=== PATIENT | female | born 1950 | race African-American/Black ===

== ENCOUNTER 2016-07-09 10:01 | Outpatient (CLI) | payer MEDICARE, OTHER ==
[2016-07-09 13:21] LABS: Cardiac Risk 3.7 (Less than 4.5)
== END 2016-07-09 10:02 | disposition home or self-care (01) ==
LOC: NAVSJIPCSP 10:01
PROVIDERS: ATTEND Internal Medicine
DX: E78.5 Hyperlipidemia, unspecified (principal); E10.29 Type 1 diabetes mellitus with other diabetic kidney complication; Z79.899 Other long term (current) drug therapy
CPT/HCPCS: 36415; 80061; 83036

== ENCOUNTER 2016-10-10 09:59 | Outpatient (CLI) | payer MEDICARE, OTHER ==
[2016-10-10 12:55] LABS: Bilirubin Negative (Negative); Blood, Urine Large (Negative); Clarity Clear (Clear); Glucose, Urine (Dipstick) Negative (Negative); Leukocyte Negative (Negative); Nitrite Negative (Negative); Protein, Urine (Dipstick) Negative (Neg-Trace); Specific Gravity, Urine 1.015 (1.005-1.030); Urobilinogen 0.2 mg/dL (0.2-1.0)
[2016-10-10 13:00] LABS: #Basophils 0.1 thou/uL (0.0-0.2); #Eosinphils 0.3 thou/uL (0.0-0.7); #Lymphocytes 2.8 thou/uL (1.20-3.40); #Monocytes 1.2 thou/uL (0.11-0.59); #Neutrophils 4.5 thou/uL (1.40-6.50); %Basophils 1.2 % (0.0-1.0); %Eosinophils 3.6 % (0.0-10.0); %Lymphocytes 31.3 % (21.0-51.0); %Monocytes 13.4 % (0.0-10.0); %Neutrophils 50.5 % (42.0-75.0); Hemoglobin 11.4 g/dL (12.0-16.0); Mean Corpuscular HGB CONC 32.2 g/dL (32.0-36.0); Mean Corpuscular Hemoglobin 29.7 pg (27.0-31.0); Mean Corpuscular Volume 92.3 fl (81.0-99.0); Mean Platelet Volume 6.8 fL (7.4-10.4); Platelet Count 269 thou/uL (130-400); RBC Distribution Width 12.6 % (11.5-14.5); Red Blood Cell (RBC) Count 3.84 mill/uL (4.20-5.40)
[2016-10-10 13:21] LABS: Hemoglobin A1c 8.1 % (4.0-6.0)
[2016-10-10 13:22] LABS: Thyroid Stimulating Hormone 0.0391 uIU/mL (0.35-4.94)
[2016-10-10 13:29] LABS: ALT (SGPT) 18 U/L (8-55); AST (SGOT) 14 U/L (5-34); Albumin 3.9 g/dL (3.4-4.8); Alkaline Phosphatase 107 U/L (40-150); Anion Gap 18 mmol/L (10-20); BUN (Urea Nitrogen) 31 mg/dL (9.8-20.1); Bilirubin, Total 0.3 mg/dL (0.2-1.2); Calc. Creatinine Clearance 0 mL/min (70-130); Calcium 8.7 mg/dL (7.8-10.44); Carbon Dioxide 19 mmol/L (23-31); Chloride 106 mmol/L (98-107); Cholesterol 124 mg/dl (< 200 Desired); Estimated GFR-MDRD 42; Globulin 4.2 g/dL (2.4-3.5); Glucose 215 mg/dL (80-115); HDL Cholesterol 31 mg/dL (>60 Neg Risk); LDL Cholesterol, Calculated 65 mg/dL; Protein, Total 8.1 g/dL (6.0-8.3); Sodium 139 mmol/L (136-145); Triglycerides 139 mg/dL (Less than 150)
[2016-10-10 14:00] LABS: Bacteria/HPF Rare-Few HPF (None Seen); Crystals/HPF 3+ URIC ACID HPF (Negative); Squamous Epithelial 0-3 HPF (0-3); WBC/HPF 0-3 HPF (0-3)
[2016-10-10 17:58] LABS: Hep C IgG Ab Non-Reactive (NonReactive); Hep C Index 0.43 S/CO (0-0.79)
[2016-10-10 18:01] LABS: Creatinine, Urine 167.51 mg/dL (47-110); Microalbumin Urine 2.6 mg/dL (0.5-50.0); Microalbumin/Creat Ratio 15.5 mg/g (Less than 30)
== END 2016-10-10 10:00 | disposition home or self-care (01) ==
LOC: NAVSJIPCSP 09:59
PROVIDERS: ATTEND Internal Medicine
DX: E03.9 Hypothyroidism, unspecified (principal); I11.9 Hypertensive heart disease without heart failure; E78.5 Hyperlipidemia, unspecified; E10.29 Type 1 diabetes mellitus with other diabetic kidney complication; Z79.899 Other long term (current) drug therapy; Z72.89 Other problems related to lifestyle
CPT/HCPCS: 36415; 80053; 80061; 81003; 81015; 82043; 83036; 84443; 85025; 86803

== ENCOUNTER 2017-01-14 10:18 | Outpatient (CLI) | payer MEDICARE, OTHER ==
[2017-01-14 13:21] LABS: #Basophils 0.2 thou/uL (0.0-0.2); #Eosinphils 0.2 thou/uL (0.0-0.7); #Lymphocytes 3.2 thou/uL (1.20-3.40); #Neutrophils 4.2 thou/uL (1.40-6.50); %Basophils 1.8 % (0.0-1.0); %Eosinophils 2.3 % (0.0-10.0); %Lymphocytes 36.5 % (21.0-51.0); %Monocytes 11.2 % (0.0-10.0); %Neutrophils 48.2 % (42.0-75.0); Hemoglobin 11.2 g/dL (12.0-16.0); Mean Corpuscular HGB CONC 31.8 g/dL (32.0-36.0); Mean Corpuscular Hemoglobin 29.5 pg (27.0-31.0); Mean Corpuscular Volume 92.8 fl (81.0-99.0); Mean Platelet Volume 6.6 fL (7.4-10.4); Platelet Count 241 thou/uL (130-400); RBC Distribution Width 12.3 % (11.5-14.5); Red Blood Cell (RBC) Count 3.81 mill/uL (4.20-5.40); White Blood Cell (WBC) Count 8.6 thou/uL (4.8-10.8)
[2017-01-14 13:33] LABS: Anion Gap 19 mmol/L (10-20); BUN (Urea Nitrogen) 24 mg/dL (9.8-20.1); Calc. Creatinine Clearance 0 mL/min (70-130); Calcium 8.8 mg/dL (7.8-10.44); Carbon Dioxide 20 mmol/L (23-31); Chloride 109 mmol/L (98-107); Cholesterol 93 mg/dl (< 200 Desired); Estimated GFR-MDRD 41; Glucose 175 mg/dL (80-115); HDL Cholesterol 31 mg/dL (>60 Neg Risk); LDL Cholesterol, Calculated 41 mg/dL; Potassium 4.5 mmol/L (3.5-5.1); Sodium 143 mmol/L (136-145); Triglycerides 106 mg/dL (Less than 150)
[2017-01-14 14:05] LABS: Hemoglobin A1c 8.3 % (4.0-6.0)
[2017-01-14 19:20] LABS: Iron 71 ug/dL (50-170)
== END 2017-01-14 10:19 | disposition home or self-care (01) ==
LOC: NAVSJIPCSP 10:18
PROVIDERS: ATTEND Internal Medicine
DX: E10.29 Type 1 diabetes mellitus with other diabetic kidney complication (principal); I13.10 Hypertensive heart and chronic kidney disease without heart failure, with stage 1 through stage 4 chronic kidney disease, or unspecified chronic kidney disease; N18.2 Chronic kidney disease, stage 2 (mild); D63.1 Anemia in chronic kidney disease; E78.5 Hyperlipidemia, unspecified
CPT/HCPCS: 36415; 80048; 80061; 82728; 83036; 83540; 85025

== ENCOUNTER 2018-12-29 12:29 | Emergency (ER) | payer MEDICARE, OTHER ==
[2018-12-29] MEDS ORDERED: Sodium Chloride 0.9% 500 ML ONE (13:08)
[2018-12-29 13:16] LABS: #Basophils 0.1 thou/uL (0.0-0.2); #Eosinphils 0.1 thou/uL (0.0-0.7); #Lymphocytes 2.6 thou/uL (1.20-3.40); #Monocytes 0.9 thou/uL (0.11-0.59); #Neutrophils 6.9 thou/uL (1.40-6.50); %Basophils 0.7 % (0.0-1.0); %Eosinophils 0.8 % (0.0-10.0); %Lymphocytes 24.6 % (21.0-51.0); %Monocytes 8.6 % (0.0-10.0); %Neutrophils 65.3 % (42.0-75.0); Hemoglobin 11.4 g/dL (12.0-16.0); Mean Corpuscular HGB CONC 31.6 g/dL (32.0-36.0); Mean Corpuscular Volume 91.7 fL (78.0-98.0); Mean Platelet Volume 6.6 fL (7.4-10.4); Platelet Count 291 thou/uL (130-400); RBC Distribution Width 12.6 % (11.5-14.5); Red Blood Cell (RBC) Count 3.95 mill/uL (4.20-5.40); White Blood Cell (WBC) Count 10.6 thou/uL (4.8-10.8)
[2018-12-29 13:31] LABS: ALT (SGPT) 21 U/L (8-55); AST (SGOT) 15 U/L (5-34); Alkaline Phosphatase 116 U/L (40-150); Anion Gap 16 mmol/L (10-20); BUN (Urea Nitrogen) 21 mg/dL (9.8-20.1); Bilirubin, Total 0.3 mg/dL (0.2-1.2); Calc. Creatinine Clearance 0 mL/min (70-130); Calcium 8.8 mg/dL (7.8-10.44); Carbon Dioxide 20 mmol/L (23-31); Chloride 106 mmol/L (98-107); Estimated GFR-MDRD 43; Globulin 4.3 g/dL (2.4-3.5); Glucose 282 mg/dL (80-115); Potassium 3.9 mmol/L (3.5-5.1); Protein, Total 8.3 g/dL (6.0-8.3); Sodium 138 mmol/L (136-145)
--- NOTE | 2018-12-29 13:38 | CT ---
HEAD CT WITHOUT CONTRAST: 12/29/18 HISTORY: Disorientation and dizziness. COMPARISON: None. FINDINGS: No parenchymal hemorrhage. No extra-axial hematoma. No midline shift. Basilar cisterns are patent. Brain volume is age appropria te. Cortical malik-white matter differentiation is preserved. No hydrocephalus. Adequate aeration of the sinuses and mastoid air cells. Cavernous carotid atheroscl erosis. Calvarium is intact. IMPRESSION: No acute intracranial process. POS: [facility]
--- NOTE | 2018-12-29 13:43 | RAD ---
FRONTAL VIEW CHEST: 12/29/18 COMPARISON: 03/09/12. INDICATION: Emergency exam, hypertension. FINDINGS: There is no lobar consolidation, effusion or discrete pneumothorax. Cardiac silhouette is accentuated by portable technique. No significant interval change from 03/09/12 exam. IMPRESSION: No focal consolidation. POS: [facility]
== END 2018-12-29 14:20 | disposition home or self-care (01) ==
LOC: NAV ERS 12:29
DX: E11.65 Type 2 diabetes mellitus with hyperglycemia (principal); I10 Essential (primary) hypertension; R42 Dizziness and giddiness; Z79.4 Long term (current) use of insulin; E03.9 Hypothyroidism, unspecified; E78.5 Hyperlipidemia, unspecified; Z79.899 Other long term (current) drug therapy
CPT/HCPCS: 36416; 70450; 71045; 80053; 84484; 85025; 93005; J7050

== ENCOUNTER 2019-07-14 08:59 | Outpatient (CLI) | payer MEDICARE, MEDICAID ==
--- NOTE | 2019-07-14 10:58 | CT ---
Exam: Abdomen CT without contrast Pelvic CT without contrast HISTORY: Endoscopic hematuria. Left renal calculi. COMPARISON: None FINDINGS: Abdomen CT: Lung bases:Clear Heart size: Normal heart size Aorta: Normal caliber Solid organs: Grossly no abnormality Lymph nodes: No gastrohepatic, retrocrural or periportal lymphadenopathy Gallbladder: Unremarkable Mesentery: No mass, lymphadenopathy, free air or free fluid Kidneys: Bilateral nonobstructing intrarenal calculi. There is a crescentic shaped calcification in t he right renal pelvis, measuring 3.3 cm in the craniocaudal dimension. There is a well-circumscribed hypodensity in the right renal cortex and pelvis compatible with a cyst measuring 5.4 x 3.2 cm. Multiple bilateral cortical hypodensities are too small to characterize. Largest hypodensity in the left renal cortex is compatible with a cyst measuring 2.1 x 1.3 cm. Bilaterally no obstructive uropathy. Alimentary canal: Limited evaluation by the lack of oral contrast. No evidence of bowel obstruction. Unremarkable ileocecal junction. Normal caliber appendix. Scattered fecal material in a nondistended, nondilated colon. Diverticulosis, without evidence of diverticulitis. CT PELVIS: No mass, adenopathy, free air or free fluid. Surgically absent uterus. Urinary bladder: Unremarkable. Osseous structures: There are no lytic or blastic lesions. Grade 1 anterolisthesis of L4 upon L5 with out associated spondylolysis. IMPRESSION: 1. Bilaterally no obstructive uropathy 2. Bilateral nonobstructing calculi 3. Multiple renal cortical cysts. Additional smaller hypodensities cannot be further characterize but statistically favored to be cysts.
== END 2019-07-14 09:00 | disposition home or self-care (01) ==
LOC: NAV CT 08:59
PROVIDERS: ATTEND Internal Medicine
DX: Z01.818 Encounter for other preprocedural examination (principal); R31.21 Asymptomatic microscopic hematuria; N20.0 Calculus of kidney; N28.1 Cyst of kidney, acquired
CPT/HCPCS: 36415; 74176; 82565

== ENCOUNTER 2020-02-07 09:33 | Emergency (ER) | payer MEDICARE, OTHER ==
[2020-02-08 12:57] LABS: SARS-CoV-2 MS2 Positive; SARS-CoV-2 N Gene Negative; SARS-CoV-2 S Gene Negative; SARS-CoV-2 by NAA Not Detected (NotDetected); SARS-CoV-2 orf1ab Negative
== END 2020-02-07 10:50 | disposition home or self-care (01) ==
LOC: NAV ERS 09:33
DX: Z20.828 Contact with and (suspected) exposure to other viral communicable diseases (principal); E11.9 Type 2 diabetes mellitus without complications; I10 Essential (primary) hypertension; E78.5 Hyperlipidemia, unspecified; Z79.899 Other long term (current) drug therapy; Z79.4 Long term (current) use of insulin
CPT/HCPCS: 99283; U0003; 87635

== ENCOUNTER 2023-01-29 03:59 | Emergency (ER) | payer OTHER ==
[2023-01-29 04:30] LABS: #Basophils 0.1 thou/uL (0.0-0.2); #Eosinphils 0.2 thou/uL (0.0-0.7); #Neutrophils 4.8 thou/uL (1.40-6.50); %Basophils 0.9 % (0.0-1.0); %Eosinophils 1.5 % (0.0-10.0); %Lymphocytes 39.7 % (21.0-51.0); %Neutrophils 47.9 % (42.0-75.0); Hematocrit 36.4 % (36.0-47.0); Mean Corpuscular HGB CONC 32.9 g/dL (32.0-36.0); Mean Corpuscular Hemoglobin 31.8 pg (27.0-31.0); Mean Corpuscular Volume 96.7 fl (78.0-98.0); Mean Platelet Volume 8.2 fL (7.4-10.4); Platelet Count 136 10x3/uL (130-400); Red Blood Cell (RBC) Count 3.76 mill/uL (4.20-5.40); White Blood Cell (WBC) Count 10.1 10x3/uL (4.8-10.8)
[2023-01-29 04:39] LABS: ALT (SGPT) 31 U/L (8-55); AST (SGOT) 25 U/L (5-34); Albumin 4.1 g/dL (3.4-4.8); Alkaline Phosphatase 95 U/L (40-110); Anion Gap 16 mmol/L (10-20); BUN (Urea Nitrogen) 29 mg/dL (9.8-20.1); Bilirubin, Total 0.3 mg/dL (0.2-1.2); Calc. Creatinine Clearance 0 mL/min (70-130); Calcium 8.2 mg/dL (7.8-10.44); Carbon Dioxide 20 mmol/L (23-31); Chloride 110 mmol/L (98-107); Estimated GFR 31; Glucose 221 mg/dL (83-110); Potassium 3.6 mmol/L (3.5-5.1); Protein, Total 8.1 g/dL (5.8-8.1); Sodium 142 mmol/L (136-145); Troponin I 0.173 ng/mL (< 0.028)
[2023-01-29] MEDS ORDERED: Sodium Chloride 0.9% 500 ML ONE (04:47)
[2023-01-29 05:42] LABS: Bilirubin Negative (Negative); Blood, Urine Moderate (Negative); Clarity Clear (Clear); Glucose, Urine (Dipstick) 100 mg/dL (Negative); Ketone, Urine Negative (Negative); Leukocyte Negative (Negative); Nitrite Negative (Negative); Protein, Urine (Dipstick) 100 mg/dL (Neg-Trace); Urobilinogen 0.2 mg/dL (Less than 2); pH, Urine 5.5 (5.0-9.0)
[2023-01-29 05:46] LABS: Bacteria/HPF None Seen HPF (None Seen); CAUTI Indications for Culture Dysuria,urgency,freq; Squamous Epithelial 0-3 HPF (0-3); Urine Culture Reflex No No; WBC/HPF None Seen HPF (0-3)
[2023-01-29] MEDS ORDERED: Lorazepam 2 MG/ML VIAL ONE (05:56)
[2023-01-29] MEDS ORDERED: Aspirin Chewable 81 MG TAB ONE (07:35)
== END 2023-01-29 08:28 | disposition short-term general hospital (02) ==
LOC: NAV ERS 03:59
DX: R06.4 Hyperventilation (principal); R06.02 Shortness of breath; E11.9 Type 2 diabetes mellitus without complications; Z79.4 Long term (current) use of insulin; E03.9 Hypothyroidism, unspecified; I10 Essential (primary) hypertension; Z79.899 Other long term (current) drug therapy
CPT/HCPCS: 71045; 80053; 81001; 84484; 85025; 85379; 93005; 96374; J2060; J7030